=== PATIENT | female | born 1950 | race Caucasian/White ===

== ENCOUNTER 2016-10-15 17:02 | Observation (INO) | payer MEDICAID ==
[2016-10-15] MEDS ORDERED: diphenhydrAMINE HCL 50 MG/ML VIAL ONE ×2 (17:05→18:50)
[2016-10-15] MEDS ORDERED: METHYLPREDNISOLONE SOD SUCC/PF 125 MG/2 ML VIAL ONE (17:05)
[2016-10-15] MEDS ORDERED: FAMOTIDINE 10 MG/ML VIAL IV ONE ×2 (17:06→17:19)
[2016-10-15] MEDS ORDERED: METHYLPREDNISOLONE SOD SUCC/PF 125 MG/2 ML VIAL IV ONE (17:17)
[2016-10-15] MEDS ORDERED: diphenhydrAMINE HCL 50 MG/ML VIAL IV ONE ×2 (17:18→18:45)
--- OUTSIDE RECORDS SUMMARY | 2016-10-15 18:12 | XMS REPORT | Continuity of Care Document ---
:1950 Author Organization [facility] ([facility]) Address [address] [place] [id number] Phone [phone] Care Team Providers Name Role Phone [phone], Need To Check Primary Care Provider Unavailable Source Comments This disclosure is being made pursuant to the Care Everywhere program, applicable federal and state laws, and may not contain all informaitonavailable regarding this patient.[facility] ([facility]) Active Allergies and Adverse Reactions Allergen Noted Date Severity Reactions Comments Penicillins 10/01/2014 Urticaria (Hives) Current Medications Prescription Sig. Disp. Refills Start Date End Date Status metoPROLol (TOPROL XL) Take 25 mg by Active succinate 25 mg XL tablet mouth daily. Active Problems Problem Noted Date Colon cancer 10/01/2014 Social History Tobacco Use Types Packs/Day Years Used Date Former Smoker Quit: 08/16/2014 Smokeless Tobacco: Never Used Last Filed Vital Signs Vital Sign Reading Time Taken Blood Pressure 143/80 10/29/2014 1:39 PM SUPERSONIC ENGINEER Pulse 70 10/29/2014 1:39 PM SUPERSONIC ENGINEER Temperature 36 C (96.8 F) 10/29/2014 1:39 PM SUPERSONIC ENGINEER Respiratory Rate 16 10/29/2014 1:39 PM SUPERSONIC ENGINEER Height - - Weight 61.054 kg (134 lb 9.6 oz) 10/29/2014 1:39 PM SUPERSONIC ENGINEER Body Mass Index - - Oxygen Saturation 98% 10/29/2014 1:39 PM SUPERSONIC ENGINEER Plan of Care Health Maintenance Due Date Last Done Comments HCV Screening 1950 Hepatitis B Vaccine (1 of 3 - Primary Series) 1950 Tdap Vaccine 12/01/1963 Lipid Disorder Screening 1970 Td Vaccine 1970 Pneumococcal Vaccine (1 of 3 - PCV13) 12/01/1971 Cervical Cancer Screening 1982 Mammogram 1992 Colonoscopy 2002 Zoster Vaccine 2012 Influenza Vaccine: Seasonal (#1) 04/06/2016 Results from Last 3 Months Not on file
[2016-10-15] MEDS ORDERED: NICOTINE 21 MG PATC TD ONE (19:48)
--- NOTE | 2016-10-15 19:58 | ERNOTE ---
Allergy Symptoms - ER Date of Service: 10/15/16 Presenting Symptoms: face swelling, skin rash, itching Time Seen by Provider: 10/15/16 17:11 Source: patient Exam Limitations: no limitations Immunizations: IMMUNIZATION HX Immunizations Up to Date Yes History of Influenza Vaccine Yes Allergies/Adverse Reactions: Allergies Penicillins Allergy (Mild, Verified 04/07/16 08:12) Itching From head to toe adhesive Adverse Reaction (Intermediate, Verified 04/07/16 08:12) RASH Home Medications: HOME MEDICATIONS Aspirin [Aspirin Enteric Coated] 81 mg PO DAILY 03/19/15 [Last Taken 04/06/16 12 :00 81] Chlorthalidone [Hygroton] 25 mg PO DAILY 03/31/16 [Last Taken 04/06/16 12:00 25] Metoprolol Succinate [Toprol Xl] 50 mg PO DAILY 03/31/16 [Last Taken 04/06/16 12 :00 50] - History of Present Illness Narrative: 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 She has been on Keflex and has a PCN allergy. She also had a flu shot today. No other new exposures. Has not taken anything for this. Has not seen anyone else for this. nothing makes it better or worse. No trouble breathing or swallowing. No CP or SOB. Timing: Present: constant Treatment IMPROVEMENT NURSE:: none Location skin rash/itching: Present: facial, extremities, "redness" Location swelling: Present: face, lip(s) Exposure: Present: other - see above Modifying Factors (Improves): Reports: nothing Modifying Factors (Worsens): Reports: nothing Similar symptoms previously: No Review of Systems - Review of Systems Constitutional: Absent: fever Respiratory: Absent: shortness of breath Cardiology: Absent: chest pain Gastrointestinal/Abdominal: Absent: abdominal pain Neurological: Absent: weakness All Other Systems: All systems neg except as marked - Patient's Past Medical History Patient History - Medical: No pertinent hx Patient History - Cardiac/Respiratory: Hypertension Patient History - Cancer: Colon Patient History - Surgical Procedures: Colon Resection, Colonoscopy, D & C Patient History - Other: None - Family History Mother Family History - Medical: , No pertinent hx Family History - Cardiac/Respiratory: Hypertension Father Family History - Medical: , History Unknown Family History - Cardiac/Respiratory: CVA/Stroke, Hypertension Brother Family History - Medical: , History Unknown Family History - Cardiac/Respiratory: Aneurysm, CVA/Stroke, Hypertension Sister Family History - Medical: No pertinent hx Family History - Cardiac/Respiratory: CVA/Stroke, Hypertension - Social History Living Situations: other Abuse History: No History of abuse Psych History: No pertinent hx Smoking Status: Current every day smoker Have you smoked in the past 12 months: Yes Alcohol Use: occasionally Drug Use: none - Immunizations Immunizations Up to Date: Yes History of Influenza Vaccine: Yes Physical Exam - Physical Exam General Appearance: Present: alert, no apparent distress Eye Exam: Normal inspection: bilateral, PERRL: bilateral Ears, Nose, Throat: Present: normal pharynx, other - Swelling of lips. no tongue, or posterior oropharyngeal swelling.. Absent: pharyngeal erythema, pharyngeal swelling, tonsillar exudate, tonsillar swelling, dry mucous membranes Neck: Present: normal inspection Respiratory: Present: no respiratory distress, normal breath sounds, no accessory muscle use, lungs clear Cardiovascular/Chest: Present: regular rate, rhythm Gastrointestinal/Abdominal: Present: normal bowel sounds, nondistended, soft Extremity Exam: Present: no edema Neurological Exam: Present: alert, no motor/sensory deficits, staff electrical engineer II-XII nml as tested Skin Exam: Present: other - Redness and urticaria both arms. ED Progress - Vital Signs Patient's Vital Signs:: I have reviewed the patient's vital signs. Vital Signs: Vital Signs 10/15/16 10/15/16 10/15/16 17:03 17:10 17:29 Temperature 35.5 C L Pulse Rate 92 73 Respiratory 16 20 16 Rate Blood Pressure 130/75 139/76 O2 Sat by Pulse 99 96 97 Oximetry 10/15/16 10/15/16 18:00 18:46 Temperature Pulse Rate 68 72 Respiratory 20 16 Rate Blood Pressure 114/66 113/70 O2 Sat by Pulse 96 93 Oximetry - Progress/Reassessment Chief Complaint: Allergic Reaction Progress Note-Subjective: 10/15/16 19:56 Deespite IV meds patient with progressed lip swelling. Rash and itching resolved. Given additional IV benadryl. Will stay O/N as Sx progressed despite treatment. Still no airway involvement or tongue swelling. I spoke with the hospitalist who will see the patient in the ED for admission. 10/15/16 19:58 Departure Clinical Impression: Allergic reaction, Angioedema - Departure Disposition: CH Condition: Stable Referrals: Xander Steiner MD [Primary Care Provider] -
--- OUTSIDE RECORDS SUMMARY | 2016-10-15 19:59 | XMS REPORT | Continuity of Care Document ---
:1950 Author Organization [facility] ([facility]) Address [address] [place] [phone] Phone [phone] Care Team Providers Name Role Phone [phone], Need To Check Primary Care Provider Unavailable Source Comments This disclosure is being made pursuant to the Care Everywhere program, applicable federal and state laws, and may not contain all informaitonavailable regarding this patient.[facility] ([facility]) Active Allergies and Adverse Reactions Allergen Noted [...] Taken Blood Pressure 143/80 10/29/2014 1:39 PM ARCHITECTURAL DESIGNER Pulse 70 10/29/2014 1:39 PM ARCHITECTURAL DESIGNER Temperature 36 C (96.8 F) 10/29/2014 1:39 PM ARCHITECTURAL DESIGNER Respiratory Rate 16 10/29/2014 1:39 PM ARCHITECTURAL DESIGNER Height - - Weight 61.054 kg (134 lb 9.6 oz) 10/29/2014 1:39 PM ARCHITECTURAL DESIGNER Body Mass Index - - Oxygen Saturation 98% 10/29/2014 1:39 PM ARCHITECTURAL DESIGNER Plan of Care Health Maintenance Due Date [...]
[2016-10-15] MEDS ORDERED: NICOTINE 21 MG PATC TD SCH (20:00)
--- NOTE | 2016-10-15 20:37 | HP ---
Chief Complaint - Chief Complaint Date of Service: 10/15/16 Time of Service: 20:36 Chief Complaint: "Itching arms, lip swelling". Source of HPI- Pt; reliable, Pt' s daughter [place], ER provider report. History of Present Illness: Ms. Harden is a 65-yr-old WF pt with no pertinent medical history except for HTN. She was recently seen at a clinic on 10/07/16 for URI symptoms. She was started on Keflex 300mg t.i.d x 10 days and has taken the medicine for at least 5 days. Today she received a flu vaccine at the clinic but an 1-2 later, she be developed itching on upper extremities. The symptoms later progressed to lip burning sensation and swelling. She informed her daughter, who chose to bring her to the [facility] ER. She denies the associated symptoms of SOB or wheezing and hives. She has a known allergy to PCN. During evaluation at the ED, daughter pointed out that her upper & lower lips still appeared swollen. She did receive treatment with Solumedrol ,Pepcid and Benadryl. At the time of physical examination, she in no distress and there is no tongue swelling noted. She will be admitted under observation status to ensure she does not suffer airway compromise from the allergic reaction to drugs/allergen. - Patient's Past Medical History Patient History - Medical: No pertinent hx Patient History - Cardiac/Respiratory: Hypertension Patient History - Cancer: Colon Patient History - Surgical Procedures: Colon Resection, Colonoscopy, D & C Patient History - Other: None - Family History Mother Family History - Medical: , No pertinent hx Family History - Cardiac/Respiratory: Hypertension Father Family History - Medical: , History Unknown Family History - Cardiac/Respiratory: CVA/Stroke, Hypertension Brother Family History - Medical: , History Unknown Family History - Cardiac/Respiratory: Aneurysm, CVA/Stroke, Hypertension Sister Family History - Medical: No pertinent hx Family History - Cardiac/Respiratory: CVA/Stroke, Hypertension - Social History Living Situations: other Abuse History: No History of abuse Psych History: No pertinent hx Smoking Status: Current every day smoker Have you smoked in the past 12 months: Yes Alcohol Use: occasionally Drug Use: none - Immunizations Immunizations Up to Date: Yes History of Influenza Vaccine: Yes Review Of Systems (GEN) - Review of Systems Generalized/Overall Review: Absent: Weakness, Chills, Fever EENTM: Present: Nose Pain, Nose Congestion, Other - Lip Swelling. Absent: Eye Pain, Blurred Vision, Double Vision, Throat Pain, Throat Swelling Cardiac: Absent: Chest Pain, Edema, Palpitations Abdominal: Absent: Nausea, Vomiting, Hematemesis, Abdominal Pain, Constipation, Diarrhea Genitourinary: Absent: Burning, Itching, Urgency, Frequency, Hematuria Musculoskeletal: Absent: Joint Pain, Back Pain, Neck Pain Neurological: Absent: Headache, Anxiety, Depressed, Weakness Skin: Absent: Dryness, Lesions, Lumps Endocrine: Absent: Intolerance to Cold, Intolerance to Heat, Flushing, Increased Thirst Misc: All systems neg except as marked Immunizations: IMMUNIZATION HX Immunizations Up to Date Yes History of Influenza Vaccine Yes Allergies/Adverse Reactions: Allergies Allergy/AdvReac Type Severity Reaction Status Date / Time cephalexin monohydrate Allergy Severe Verified 10/15/16 21:41 [From Keflex] Penicillins Allergy Mild Itching Verified 04/07/16 08:12 adhesive AdvReac Intermediate RASH Verified 04/07/16 08:12 Home Medications: HOME MEDICATIONS Aspirin [Aspirin Enteric Coated] 81 mg PO DAILY 03/19/15 [Last Taken 04/06/16 12 :00 81] Chlorthalidone [Hygroton] 25 mg PO DAILY 03/31/16 [Last Taken 04/06/16 12:00 25] Metoprolol Succinate [Toprol Xl] 50 mg PO DAILY 03/31/16 [Last Taken 04/06/16 12 :00 50] Exam - Exam Vital Signs: Vital Signs - Last Taken Temp 35.5 C L 10/15/16 17:03 Pulse 73 10/15/16 19:51 Resp 12 10/15/16 19:51 BP 110/68 10/15/16 19:51 Pulse Ox 93 10/15/16 19:51 Constitutional: Present: Alert, Oriented x3, Cooperative, No distress ENT Exam: Present: nasal congestion, nasal drainage, other - swollen lips. Eye Exam: bilateral eye: normal inspection, PERRL Neck: Present: full range of motion, supple, normal inspection, trachea midline Back Exam: Present: normal inspection, no CVA tenderness Breasts: Present: Exam deferred Respiratory: Present: decreased breath sounds, No wheezing Cardiovascular/Chest: Present: normal peripheral pulses, regular rate, rhythm, no murmur Abdomen: Present: Normal bowel sounds, soft, nontender /Rectal: Present: Exam deferred Skin Exam: Present: warm/dry, no cyanosis Lymphatic: Present: no adenopathy Neurologic: Present: alert, normal mood/affect, oriented x 3 Appearance: Present: appropriate appearance, appropriate insight Eye contact: Present: cooperative, good eye contact, normal speech Assessment/Plan - Assessment/Plan (1) Angioedema Assessment: The Angioedema is due to suspected Allergen- Drugs/medication or vaccine. No loss of airway nor level of consciousness, and no SOB or wheezing but developed of Angioedema involving both lips. No swelling of tongue or uvula. She reports that its the first encounter she has ever had. She received adjunctive treatment in ER with IV Benadryl, Pepcid and Solumedrol. Will monitor overnight to ensure she does not suffer respiratory compromise (wheezing, dyspnea & Hypoxemia). At discharge, may consider 2 generation antihistamine ( Zyrtec) and short course of oral steroid. Problem: Acute (2) Allergic reaction Problem: Acute (3) HTN (hypertension) Problem: Chronic Qualifiers: Hypertension type: essential hypertension Qualified Code(s): I10 - Essential (primary) hypertension
[2016-10-15] MEDS ORDERED: diphenhydrAMINE HCL 50 MG/ML VIAL IV PRN (20:42)
[2016-10-16] MEDS ORDERED: ASPIRIN 81 MG TABLET.DR PO SCH (09:00)
[2016-10-16] MEDS ORDERED: CHLORTHALIDONE 25 MG TABLET PO SCH (09:00)
[2016-10-16] MEDS ORDERED: METOPROLOL SUCCINATE 50 MG TABLET.SA PO SCH (09:00)
[2016-10-16 10:41] VITALS: BP 122/61
--- NOTE | 2016-10-16 12:33 | DS ---
(1) Angioedema Diagnosis(s): Lu is a 65 yo female admitted for allergic reaction with angioedema. Reaction is suspected to be from keflex that she had been on for 5 days. She had also recently received a flu vaccine, but I suspect the antibiotic to be the more likely cause. She was admitted to observation to monitor airway. She had no problems during hospital course. She was treated with benadryl, steroids, and pepcid and angioedema resolved. Will taper steroids. Follow up as needed. Problem: Acute Procedures Performed: none Discharge Disposition: Home self care Disposition: Home self-care Condition: Good Discharge Activity: Activity as tolerated Discharge Diet: General/regular food Referrals: Xander Steiner MD [Primary Care Provider] - (as needed) Problem Oriented Discharge Instructions to Patient/Family: Angioedema, Easy-to- Read Prescriptions (Any new or edited meds): predniSONE [Prednisone] 2 tab PO DAILY #20 tab Complete Home Medications List: Complete Home Medication List: Aspirin [Aspirin Enteric Coated] 81 mg PO DAILY 03/19/15 Chlorthalidone [Hygroton] 25 mg PO DAILY 03/31/16 Metoprolol Succinate [Toprol Xl] 50 mg PO DAILY 03/31/16 predniSONE [Prednisone] 2 tab PO DAILY #20 tab 10/16/16
== END 2016-10-16 13:00 | disposition home or self-care (01) ==
LOC: ER 17:02 → MS 19:55
PROVIDERS: ADMIT Nurse Practitioner; ATTEND Family Medicine
DX: T78.3XXA Angioneurotic edema, initial encounter (principal); F17.210 Nicotine dependence, cigarettes, uncomplicated
CPT/HCPCS: 96374; 96375; 99284; G0378

== ENCOUNTER 2017-04-12 08:52 | Day surgery (SDC) | payer MEDICAID, OTHER ==
[~2017-04-12 08:52] MED LIST: RINGER'S SOLUTION,LACTATED 1,000 ML IV PRN
[2017-04-12] MEDS ORDERED: RINGER'S SOLUTION,LACTATED 1,000 ML IV PRN (10:13)
[2017-04-12 11:06] VITALS: BP 134/73
--- NOTE | 2017-04-13 12:22 | OR ---
Operative Report - Dictated Report Narrative: OPERATIVE REPORT DATE OF OPERATION: 04/12/2017 PREOPERATIVE DIAGNOSIS: History of colon cancer. History of colon polyps POSTOPERATIVE DIAGNOSIS: Hyperplastic appearing rectal polyp (pathology pending), evidence of previous left colon anastomosis, otherwise normal colonoscopy to the cecum OPERATION: Colonoscopy with hot biopsy forceps polypectomy in the rectum SURGEON: Shahbaz Morin MD ANESTHESIA: LUIS Reid CRNA INDICATIONS FOR PROCEDURE: The patient is a 66-year-old female presented self referred for colon surveillance. She had a left colon or sigmoid resection for adenocarcinoma at [facility] in 2013. She had 2 tubular adenomas removed in 2014 and another tubular adenoma removed in 2015. She is currently asymptomatic FINDINGS: 2-3 millimeter Hyperplastic-appearing rectal polyp, otherwise normal colonoscopy to the cecum. Healthy anastomosis in the left colon NARRATIVE OF PROCEDURE: The patient was identified in the holding area, and prior to the administration of anesthetic, a multidisciplinary timeout was observed. With the patient in the left lateral position and after the administration of intravenous sedation, the perineum was inspected. There was no evidence of pilonidal disease or skin breakdown. The external appearance of the anus was normal. Sphincter tone was good. The flexible fiberoptic colonoscope was inserted into the rectum which was insufflated with air. The rectal mucosa and submucosal vascular pattern appeared normal with exception of a very small area of hyperplastic-appearing polypoid change. This was biopsied in an thoroughly destroyed with electrocautery. The site was seen to be complete and hemostatic. The prep was seen to be complete. The scope was advanced through the sigmoid colon, up the descending colon, and around the splenic flexure where the triangular haustral architecture of the transverse colon was seen. The scope was advanced across the transverse colon, around the hepatic flexure to the cecum, where the confluence of tenia and the ileocecal valve were identified. The mucosa at this level appeared normal. The scope was then slowly withdrawn in a circular fashion so that all aspects of colonic mucosa were inspected. The colon was normal in course and caliber. A healthy anastomosis was identified in the area of the descending colon. The haustral architecture appeared well preserved throughout with no evidence of external compression. The mucosa and submucosal vascular pattern appeared normal, specifically there was no gross evidence to suggest colitis or inflammatory bowel disease and no AV malformations were seen. No isabel diverticulosis was demonstrated. No adenomatous appearing polyps were encountered. The scope was gradually withdrawn to the level of the rectum. As much insufflated air as possible was removed. The scope was withdrawn from the patient and the procedure terminated. The patient tolerated the anesthetic and procedure well without complication and was transferred back to the ambulatory surgery area awake and in stable condition. The patient remained stable throughout a period of postoperative observation. She denied abdominal discomfort, was able to tolerate by mouth intake, and was up without assistance. I shared the operative findings with the patient and she was given copies of the photographs which appear in the medical record. She was discharged home with instructions not to engage in hazardous activity today , but may resume normal activity tomorrow, and advance diet as tolerated. She is to continue those medications as listed in the history and physical exam. I made arrangements to contact her with the biopsy reports and will make additional recommendations for treatment and follow-up based upon those results. Reviewed and electronically signed
== END 2017-04-12 08:53 | disposition home or self-care (01) ==
LOC: AMB 08:52
PROVIDERS: ATTEND Surgery
PROC: 0DBP8ZX Excision of Rectum, Via Natural or Artificial Opening Endoscopic, Diagnostic (ICD-10-PCS; principal; 2017-04-12 09:30)
DX: Z12.11 Encounter for screening for malignant neoplasm of colon (principal); K62.1 Rectal polyp; I10 Essential (primary) hypertension; F17.200 Nicotine dependence, unspecified, uncomplicated; Z68.25 Body mass index [BMI] 25.0-25.9, adult; Z85.038 Personal history of other malignant neoplasm of large intestine